=== PATIENT | male | born 1935 | race Caucasian/White ===

== ENCOUNTER 2019-06-05 08:55 | Emergency (ER) | payer MEDICARE, BC ==
[2019-06-05] MEDS ORDERED: Cephalexin 500 MG Cap ONE (09:00)
--- NOTE | 2019-06-05 09:38 | EDM.PDOC ---
ED HPI GENERAL MEDICAL PROBLEM - General Stated Complaint: FINGER SWOLLEN Time Seen by Provider: 06/05/19 09:00 Source of Information: Reports: Patient History Limitations: Reports: No Limitations - History of Present Illness INITIAL COMMENTS - FREE TEXT/NARRATIVE: Pt is 83 year old male presents to emergency room with C/o pain and swelling in his right middle finger for 3 days now. According to patient he noticed a small painful bump over the finger knuckle 3 days ago while moving the lawn. The redness has spread and now got painful. Hurts to move the finger. Also the base of the finger has got tense. No tingling or numbness in the finger. No trauma to the finger. Onset: Gradual Onset Date: 06/02/19 Duration: Getting Worse Severity: Mild Improves with: Reports: None Worsens with: Reports: None Associated Symptoms: Denies: Confusion, Chest Pain, Cough, Diaphoresis, Fever/ Chills, Headaches, Nausea/Vomiting, Rash, Seizure, Shortness of Breath, Syncope , Weakness - Related Data Allergies Allergy/AdvReac Type Severity Reaction Status Date / Time No Known Allergies Allergy Verified 06/05/19 09:12 Home Meds: Home Meds Carvedilol 12.5 mg PO BID 06/05/19 [History] Exenatide Microspheres [Bydureon Pen] 2 ml IM ASDIRECTED 06/05/19 [History] Ezetimibe 06/05/19 [History] Furosemide 40 mg PO BID 06/05/19 [History] Simvastatin [Zocor] 40 mg PO BEDTIME 06/05/19 [History] metFORMIN [Glucophage XR] 1,500 mg PO DAILY 06/05/19 [History] ED ROS GENERAL - Review of Systems Review Of Systems: See Below Constitutional: Denies: Fever, Chills HEENT: Denies: Ear Pain, Rhinitis, Throat Pain Respiratory: Denies: Shortness of Breath, Pleuritic Chest Pain, Cough, Sputum Cardiovascular: Denies: Chest Pain, Lightheadedness GI/Abdominal: Denies: Abdominal Pain, Nausea, Vomiting Skin: Denies: Cyanosis, Bruising, Pruritis, Rash, Wound ED EXAM, GENERAL - Physical Exam Exam: See Below Exam Limited By: No Limitations General Appearance: Alert, WD/WN, No Apparent Distress Eye Exam: Bilateral Eye: EOMI, PERRL Ears: Normal External Exam, Normal Canal, Hearing Grossly Normal, Normal TMs Ear Exam: Bilateral Ear: Auricle Normal, Canal Normal, TM normal Nose: Normal Inspection, Normal Mucosa, No Blood Throat/Mouth: Normal Inspection, Normal Lips, Normal Teeth, Normal Gums, Normal Oropharynx, Normal Voice, No Airway Compromise Head: Atraumatic, Normocephalic Neck: Normal Inspection, Supple, Non-Tender, Full Range of Motion Respiratory/Chest: No Respiratory Distress, Lungs Clear, Normal Breath Sounds, No Accessory Muscle Use, Chest Non-Tender Cardiovascular: Normal Peripheral Pulses, Regular Rate, Rhythm, No Edema, No Gallop, No JVD, No Murmur, No Rub Extremities: Normal Inspection, Normal Range of Motion, Non-Tender, Normal Capillary Refill, No Pedal Edema Skin Exam: Warm, Other (Right middle finger: There s swelling with mild redness over the proximal phalynx of the finger. There are 2 raised bumps over the PIP joint which are tedner. The phalynx has tense soft tissue, with warmth, minimal tenderness. HE chaparro have GOOd ROM at the small joints of the finger, but pain ful with extension at the PIP joint. No swelling of dorsum of the hand) Course - Vital Signs Text/Narrative:: Pt has developed localized skin and soft tissue infection of the right middle finger. There is no tendon involvement. He might have developed it from bug bite while doing outdoor activity. To prevent spread of infection i did advised patient not to move the finger, which he says he cannot. Hence I have placed his middle finger in Finger splint ( not Prefabricate) and applied ana wrap to keep the splint in place. As he is diabetic I have empirically covered him with Keflex 5000mg 4 times daily for 10 days. Elevation of the right hand. I have advised him to remove the splint on friday and pain and swelling should have improved. If not advised to followup in clinic. Departure - Departure Time of Disposition: 09:30 Disposition: Home, Self-Care 01 Condition: Fair Clinical Impression: Finger infection - Discharge Information *PRESCRIPTION DRUG MONITORING PROGRAM REVIEWED*: Not Applicable *COPY OF PRESCRIPTION DRUG MONITORING REPORT IN PATIENT BENY: Not Applicable Instructions: Cellulitis, Adult, Cephalexin tablets or capsules Referrals: PCP,None [Primary Care Provider] - Care Plan Goals: Leave splint on for 3 days. Can take tylenol or motrin for pain. Take cephalexin 4 x day as directed. Have second script filled and take medication until gone. - Problem List & Annotations (1) Finger infection SNOMED Code(s): 944330972 Code(s): L08.9 - LOCAL INFECTION OF THE SKIN AND SUBCUTANEOUS TISSUE, UNSP Status: Acute Current Visit: Yes - Problem List Review Problem List Initiated/Reviewed/Updated: Yes - Assessment/Plan Assessment:: Right middle finger infection Plan: Pt has developed localized skin and soft tissue infection of the right middle finger. There is no tendon involvement. He might have developed it from bug bite while doing outdoor activity. To prevent spread of infection i did advised patient not to move the finger, which he says he cannot. Hence I have placed his middle finger in Finger splint ( not Prefabricate) and applied ana wrap to keep the splint in place. As he is diabetic I have empirically covered him with Keflex 5000mg 4 times daily for 10 days. Elevation of the right hand. I have advised him to remove the splint on friday and pain and swelling should have improved. If not advised to followup in clinic.
== END 2019-06-05 09:30 | disposition home or self-care (01) ==
LOC: LB.ED 08:55
DX: L08.9 Local infection of the skin and subcutaneous tissue, unspecified (principal); Z79.899 Other long term (current) drug therapy
CPT/HCPCS: 29130; 99283; A9270

== ENCOUNTER 2021-07-04 07:34 | Emergency (ER) | payer MEDICARE, BC ==
--- NOTE | 2021-07-04 10:29 | EDM.PDOC ---
ED HPI GENERAL MEDICAL PROBLEM - General Chief Complaint: Respiratory Problem Stated Complaint: GI UPSET/SOB Time Seen by Provider: 07/04/21 08:00 - History of Present Illness INITIAL COMMENTS - FREE TEXT/NARRATIVE: Pt is here to be checked for Covid. He has had some SOB and his stomach does not feel right. No chest pain or trouble breathing. No recent falls or injuries. He is on Coumadin. - Related Data Allergies Allergy/AdvReac Type Severity Reaction Status Date / Time No Known Allergies Allergy Verified 07/04/21 08:28 Home Meds: Home Meds Aspirin 81 mg PO DAILY 06/05/19 [History] Exenatide Microspheres [Bydureon Pen] 2 ml IM ASDIRECTED 06/05/19 [History] Ezetimibe [Zetia] 10 mg PO DAILY 06/05/19 [History] Furosemide 40 mg PO BID 06/05/19 [History] Isosorbide Mononitrate [Isosorbide Mononitrate ER] 60 mg PO DAILY 06/05/19 [History] Simvastatin [Zocor] 20 mg PO BEDTIME 06/05/19 [History] Spironolactone [Aldactone] 25 mg PO DAILY 06/05/19 [History] Warfarin [Coumadin] 2 mg PO ASDIRECTED 06/05/19 [History] carvediloL [Carvedilol] 12.5 mg PO BID 06/05/19 [History] lisinopriL [Zestril] 5 mg PO DAILY 06/05/19 [History] metFORMIN [Glucophage XR] 1,500 mg PO DAILY 06/05/19 [History] Past Medical History Cardiovascular History: Reports: Bypass, Heart Valve Replacement Endocrine/Metabolic History: Reports: Diabetes, Type II Oncologic (Cancer) History: Reports: Other (See Below) Other Oncologic History: skin, vocal cords - Past Surgical History HEENT Surgical History: Reports: Other (See Below) Other HEENT Surgeries/Procedures: vocal cord cancer GI Surgical History: Reports: Hernia, Abdominal Dermatological Surgical History: Reports: Other (See Below) Social & Family History - Family History Family Medical History: No Pertinent Family History - Caffeine Use Caffeine Use: Reports: Coffee - Recreational Drug Use Recreational Drug Use: No ED ROS GENERAL - Review of Systems Review Of Systems: Comprehensive ROS is negative, except as noted in HPI. Respiratory: Reports: Shortness of Breath GI/Abdominal: Reports: Other (Abd discomfort.) ED EXAM, GENERAL - Physical Exam Exam: See Below Course - Vital Signs Last Recorded V/S: Last Vital Signs Temp 97.7 F 07/04/21 08:36 Pulse 50 L 07/04/21 08:36 Resp 18 07/04/21 08:36 BP 116/56 L 07/04/21 08:36 Pulse Ox 97 07/04/21 08:36 - Orders/Labs/Meds Orders: Active Orders 24 hr Category Date Time Status Chest 1V Frontal [CR] Stat Exams 07/04/21 09:12 Ordered EKG 12 Lead [EK] Routine Ther 07/04/21 08:47 Ordered Labs: Laboratory Tests 07/04/21 07/04/21 07/04/21 Range/Units 08:29 09:12 09:12 WBC (4.0-11.0) K/uL RBC (4.50-6.50) M/uL Hgb (13.0-18.0) g/dL Hct (40.0-54.0) % MCV (76-96) fL MCH (27.0-32.0) pg MCHC (31.0-35.0) g/dL RDW (11.0-16.0) % Plt Count (150-400) K/uL MPV (6.0-10.0) fL Neut % (Auto) (45.0-70.0) % Lymph % (Auto) (20.0-40.0) % [place] % (Auto) (3.0-10.0) % Eos % (Auto) (1.0-5.0) % Baso % (Auto) (0.0-0.5) % Neut # (Auto) (2.00-7.50) K/uL Lymph # (Auto) (1.50-4.00) K/uL [place] # (Auto) (0.20-0.80) K/uL Eos # (Auto) (0.04-0.40) K/uL Baso # (Auto) (0.02-0.10) K/uL D-Dimer, Quantitative 917 H (0-400) ng/mL Sodium (136-145) mmol/L Potassium (3.5-5.1) mmol/L Chloride (98-107) mmol/L Carbon Dioxide (21.0-32.0) mmol/L Anion Gap (5.0-15.0) mmol/L BUN (8-26) mg/dL Creatinine (0.70-1.30) mg/dL Est Cr Clr Drug Dosing mL/min Estimated GFR (MDRD) (>60) MLS/MIN BUN/Creatinine Ratio (6-25) Glucose (74-100) mg/dL Calcium (8.5-10.1) mg/dL Total Bilirubin (0.0-1.0) mg/dL AST (15-37) U/L ALT (12-78) U/L Alkaline Phosphatase (46-116) U/L Troponin I (0.000-0.060) ng/mL B-Natriuretic Peptide 1534 H (0-450) pg/mL Total Protein (6.4-8.2) g/dL Albumin (3.4-5.0) g/dL Globulin (2.2-4.2) g/dL Albumin/Globulin Ratio (0.8-2.0) SARS CoV-2 RNA Rapid JULIANN Negative 07/04/21 07/04/21 07/04/21 Range/Units 09:15 09:15 09:20 WBC 6.9 D (4.0-11.0) K/uL RBC 3.82 L (4.50-6.50) M/uL Hgb 11.8 L (13.0-18.0) g/dL Hct 38.2 L (40.0-54.0) % MCV 100 H (76-96) fL MCH 30.9 (27.0-32.0) pg MCHC 30.9 L (31.0-35.0) g/dL RDW 16.9 H (11.0-16.0) % Plt Count 179 (150-400) K/uL MPV 11.1 H (6.0-10.0) fL Neut % (Auto) 71.0 H (45.0-70.0) % Lymph % (Auto) 17.1 L (20.0-40.0) % [place] % (Auto) 9.0 (3.0-10.0) % Eos % (Auto) 2.0 (1.0-5.0) % Baso % (Auto) 0.9 H (0.0-0.5) % Neut # (Auto) 4.91 (2.00-7.50) K/uL Lymph # (Auto) 1.18 L (1.50-4.00) K/uL [place] # (Auto) 0.62 (0.20-0.80) K/uL Eos # (Auto) 0.14 (0.04-0.40) K/uL Baso # (Auto) 0.06 (0.02-0.10) K/uL D-Dimer, Quantitative (0-400) ng/mL Sodium 139 (136-145) mmol/L Potassium 4.0 (3.5-5.1) mmol/L Chloride 100 (98-107) mmol/L Carbon Dioxide 29.5 (21.0-32.0) mmol/L Anion Gap 13.5 (5.0-15.0) mmol/L BUN 26 D (8-26) mg/dL Creatinine 1.08 (0.70-1.30) mg/dL Est Cr Clr Drug Dosing 46.75 mL/min Estimated GFR (MDRD) > 60 (>60) MLS/MIN BUN/Creatinine Ratio 24.1 (6-25) Glucose 135 H (74-100) mg/dL Calcium 8.7 (8.5-10.1) mg/dL Total Bilirubin 0.6 (0.0-1.0) mg/dL AST 17 (15-37) U/L ALT 31 (12-78) U/L Alkaline Phosphatase 64 (46-116) U/L Troponin I < 0.017 (0.000-0.060) ng/mL B-Natriuretic Peptide (0-450) pg/mL Total Protein 7.0 (6.4-8.2) g/dL Albumin 3.7 (3.4-5.0) g/dL Globulin 3.3 (2.2-4.2) g/dL Albumin/Globulin Ratio 1.1 (0.8-2.0) SARS CoV-2 RNA Rapid JULIANN - Re-Assessments/Exams Free Text/Narrative Re-Assessment/Exam: 07/04/21 10:25 Covid is negative. Labs reveal a slightly elevated BNP and D Dimer. Other labs and CXR are nml. I discussed tx measures with him. He wants to leave and take his to her Dr in [place]. She has an appt there today. His Dr is also there. He is on Lasix and Coumadin, so we will send copies of labs with him. He is to have his PCP review today, to determine if any further testing is needed. Again he does not want to stay here any longer today, and is comfortable with the tx plan. He tells me he only really wanted to know about Covid. Departure - Departure Time of Disposition: 10:00 Disposition: Home, Self-Care 01 Condition: Good Clinical Impression: CHF (congestive heart failure) Qualifiers: Heart failure type: unspecified Heart failure chronicity: chronic Qualified Code(s): I50.9 - Heart failure, unspecified - Discharge Information *PRESCRIPTION DRUG MONITORING PROGRAM REVIEWED*: Yes *COPY OF PRESCRIPTION DRUG MONITORING REPORT IN PATIENT BENY: Yes Instructions: Heart Failure, Self Care, [id number], Shortness of Breath, Adult Referrals: PCP,None [Primary Care Provider] - Forms: ED Department Discharge Care Plan Goals: follow up with your primary doctor and return to ER if condition worsens. Continue on your same medications. Sepsis Event Note (ED) - Evaluation Sepsis Screening Result: No Definite Risk - Focused Exam Vital Signs: Vital Signs Temp Pulse Resp BP Pulse Ox 07/04/21 08:36 97.7 F 50 L 18 116/56 L 97 - My Orders Last 24 Hours: My Active Orders 07/04/21 08:47 EKG 12 Lead [EK] Routine 07/04/21 09:12 Chest 1V Frontal [CR] Stat - Assessment/Plan Last 24 Hours: My Active Orders 07/04/21 08:47 EKG 12 Lead [EK] Routine 07/04/21 09:12 Chest 1V Frontal [CR] Stat
--- NOTE | 2021-07-04 16:36 | CR ---
DATE OF SERVICE: 07/04/2021 CLINICAL DATA: SOB AP CHEST: Comparison is made to a prior exam dated 11/15/2011. The patient is status post median sternotomy and heart valve replacement. The heart size is at the upper limits of normal. There is pulmonary vascular congestion and bilateral interstitial edema. Congestive failure suspected. There is blunting of both costophrenic angles consistent with bilateral pleural effusions. There are atelectatic changes in both lung bases. No other significant findings. No pneumothorax. [id number] [facility]
== END 2021-07-04 10:32 | disposition home or self-care (01) ==
LOC: LB.ED 07:34
DX: I50.9 Heart failure, unspecified (principal); E11.9 Type 2 diabetes mellitus without complications; Z79.84 Long term (current) use of oral hypoglycemic drugs; Z95.1 Presence of aortocoronary bypass graft; Z20.822 Contact with and (suspected) exposure to COVID-19; Z79.01 Long term (current) use of anticoagulants; Z79.899 Other long term (current) drug therapy; Z79.82 Long term (current) use of aspirin
CPT/HCPCS: 36415; 71045; 80053; 83880; 84484; 85025; 85379; 93005; 99285; U0002